=== PATIENT | male | born 1985 | race Caucasian/White ===

== ENCOUNTER 2016-11-20 18:48 | Emergency (ER) | payer BC ==
[2016-11-20 19:44] VITALS: BP 150/90
--- NOTE | 2016-11-20 19:50 | ERNOTE ---
Upper Extremity HPI - General Extremities Pain Location: arm: right Time Seen by Provider: 11/20/16 19:18 Source: patient Exam Limitations: no limitations - Immun/Allergies/Home Medications Immunizations: IMMUNIZATION HX History of Influenza Vaccine No Hx Pneumococcal Vaccination No Allergies/Adverse Reactions: Allergies Allergy/AdvReac Type Severity Reaction Status Date / Time Cephalosporins Allergy Verified 11/20/16 18:58 Penicillins Allergy Verified 11/20/16 18:58 Home Medications: HOME MEDICATIONS NK [No Home Medication] 11/20/16 [Last Taken Unknown] - History of Present Illness Narrative: Patient had a mild ache in his shoulder and arm when he woke up this morning. He denies any injury, he does not sleep in any particular position. During the work day he started to have progressive numbness and weakness in his right arm to the point where he cannot feel anything in his right arm from the shoulder down. 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 He has occasional pin and needle feeling in his arm in the morning when he wake us that resolve quickly, no symptoms like this before. He denies any neck pain or other neurological or systemic symptoms Date (Duration): 11/20/16 Occurred: this afternoon Method of Injury: Reports: no apparent injury Associated Symptoms: Reports: weakness, numbness distally, loss of feeling Other Injuries: Reports: none Prior Treament: Denies: recently seen, similar symptoms before Review of Systems - Review of Systems Constitutional: Absent: recent illness, fever EYE: Absent: blurred vision, double vision, vision changes ENT: Absent: nasal drainage, sore throat Respiratory: Absent: shortness of breath, cough Cardiology: Absent: chest pain Gastrointestinal/Abdominal: Absent: nausea, vomiting, abdominal pain Genitourinary: Present: no symptoms reported Musculoskeletal: Absent: back pain, neck pain Skin: Absent: rash Neurological: Present: See HPI, weakness, numbness. Absent: headache - Patient's Past Medical History Patient History - Medical: No pertinent hx Patient History - Cardiac/Respiratory: No pertinent hx Patient History - Cancer: No Hx of Cancer Patient History - Surgical Procedures: Appendectomy, T & A - Social History Living Situations: home Psych History: No pertinent hx Smoking Status: Never smoker Do you dip or chew tobacco: Yes Alcohol Use: none Drug Use: none - Immunizations Hx Pneumococcal Vaccination: No History of Influenza Vaccine: No Physical Exam - Physical Exam General Appearance: Present: wd/wn, alert, no apparent distress, obese Eye Exam: Normal inspection: bilateral, PERRL: bilateral, EOMI: bilateral Ears, Nose, Throat: Present: normal ENT inspection, normal pharynx Neck: Present: normal inspection, nontender, supple, full range of motion Respiratory: Present: no respiratory distress, normal breath sounds, no accessory muscle use, lungs clear Cardiovascular/Chest: Present: regular rate, rhythm, no murmur Peripheral Pulses: N=norm/S=strong/W=weak/B=bound/A=absent: Radial (R): Normal Extremity Exam: Present: normal inspection, non-tender, no edema, normal range of motion Neurological Exam: Present: alert, oriented, normal mood/affect, no motor/ sensory deficits - in left arm and both lower extremities, other - patient claims complete abscence of sensation on complete right arm and hand from shoulder down, decrased strength 4/5 right hand, biceps and triceps, nl strength in shoulder DTR: N=norm/NB=norm/brisk/A=abs/DD=dull/dimin/HC=hyperactive: Bicep (R): Dull/ Diminished, Bicep (L): Dull/Diminished, Tricep (R): Dull/Diminished, Tricep (L) : Dull/Diminished Skin Exam: Present: normal color, warm/dry ED Progress - Vital Signs Patient's Vital Signs:: I have reviewed the patient's vital signs. Vital Signs: Vital Signs 11/20/16 18:53 Temperature 36.0 C L Pulse Rate 107 H Respiratory 18 Rate Blood Pressure 156/98 O2 Sat by Pulse 97 Oximetry - Progress/Reassessment Chief Complaint: Upper Extremity Injury/Problem Progress Note-Subjective: 11/20/16 19:25 discussed findings that don't seem to fit any particular pattern, consider possible neuropathy, possibly related to sleep position as patient doesn't have PCP suggested follow up wit neurology does not seem to be work related Departure Clinical Impression: Neuropathy - Departure Disposition: Home self-care Condition: Good Instructions: Peripheral Neuropathy, Form - Return To Work Additional Instructions: call the neurology office in the morning for follow up Referrals: Lucie Wise MD [Staff Physician] -
== END 2016-11-20 19:35 | disposition home or self-care (01) ==
LOC: ER 18:48
DX: G62.9 Polyneuropathy, unspecified (principal); Z72.0 Tobacco use

== ENCOUNTER 2017-03-15 18:22 | Emergency (ER) | payer BC ==
[2017-03-15] MEDS ORDERED: NORMAL SALINE 1,000 ML IV ONE (18:40)
--- NOTE | 2017-03-15 18:55 | ERNOTE ---
Medical Problem HPI - Narrative Date of Service: 03/15/17 - General Chief Complaint: General Assessment Time Seen by Provider: 03/15/17 18:40 Source: patient Exam Limitations: no limitations - Immun/Allergies/Home Medications Immunizations: IMMUNIZATION HX Immunizations Up to Date Yes History of Influenza Vaccine No Hx Pneumococcal Vaccination No Allergies/Adverse Reactions: Allergies Cephalosporins Allergy (Verified 11/20/16 18:58) Penicillins Allergy (Verified 11/20/16 18:58) Home Medications: HOME MEDICATIONS NK [No Home Medication] 11/20/16 [Last Taken Unknown] Multivitamin [Multivitamins] 1 each PO DAILY 03/15/17 [Last Taken Unknown] Omeg3/Dha/Epa/Fish Oil/L.casei [Restora Capsule] 1 each PO DAILY 03/15/17 [Last Taken Unknown] - History of Present History Narrative: Pt. comes in with c/o malaise, nausea, and chest pain after he became overheated at work. Pt. denies any recent illness, SOB, vomiting, fever, but does state that he had dizziness that is resolved at this time. Pt. states taht he has had heat exhaustion in the past and this feels similar without the chest pain. Review of Systems - Review of Systems Constitutional: Present: weakness, fatigue, malaise. Absent: recent illness, fever, chills EYE: Present: no symptoms reported ENT: Present: no symptoms reported Respiratory: Present: no symptoms reported. Absent: shortness of breath, cough , wheezing Cardiology: Present: chest pain. Absent: palpitations, edema Gastrointestinal/Abdominal: Present: nausea. Absent: vomiting, diarrhea, abdominal pain Genitourinary: Present: no symptoms reported Musculoskeletal: Present: no symptoms reported. Absent: back pain, joint pain Skin: Present: no symptoms reported. Absent: rash, change in color Neurological: Present: dizziness/light-headedness. Absent: headache, numbness, tingling, tremors All Other Systems: All systems neg except as marked - Patient's Past Medical History Patient History - Medical: No pertinent hx Patient History - Cardiac/Respiratory: No pertinent hx Patient History - Cancer: No Hx of Cancer Patient History - Surgical Procedures: Appendectomy, T & A - Social History Living Situations: home Abuse History: No History of abuse Psych History: No pertinent hx Smoking Status: Former smoker Have you smoked in the past 12 months: Yes Do you dip or chew tobacco: Yes Patient requests Smoking Cessation Consult: No Initiate information on Smoking Cessation: No Alcohol Use: none Drug Use: none - Immunizations Immunizations Up to Date: Yes Hx Pneumococcal Vaccination: No History of Influenza Vaccine: No Physical Exam - Physical Exam General Appearance: Present: wd/wn, alert, no apparent distress Eye Exam: Normal inspection: bilateral, PERRL: bilateral, EOMI: bilateral Ears, Nose, Throat: Present: normal except -, dry mucous membranes Neck: Present: normal inspection, nontender. Absent: lymphadenopathy (R), lymphadenopathy (L) Respiratory: Present: no respiratory distress, normal breath sounds, no accessory muscle use, chest nontender, lungs clear Cardiovascular/Chest: Present: regular rate, rhythm, no murmur, normal peripheral pulses Gastrointestinal/Abdominal: Present: normal bowel sounds, nontender, nondistended, soft, no organomegaly Back Exam: Present: normal inspection, normal range of motion, no CVA tenderness , no vertebral tenderness Extremity Exam: Present: normal inspection, non-tender, normal range of motion, no edema Neurological Exam: Present: alert, oriented, normal mood/affect, no motor/ sensory deficits, 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 Absent: pallor, skin rash ED Progress - Date and Time Seen: Date and Time: 03/15/17 19:59 All labs and ekg are normal so feel that this was likely related to heat in the building. - Results and Orders Patient's Lab Results:: I have reviewed the patient's lab results. - Vital Signs Patient's Vital Signs:: I have reviewed the patient's vital signs. Vital Signs: Vital Signs 03/15/17 18:28 Temperature 36.3 C L Pulse Rate 75 Respiratory 18 Rate Blood Pressure 169/109 O2 Sat by Pulse 98 Oximetry - EKG EKG: NSR EKG read: Reviewed by me EKG Comments: interp by Dr Acuna - X-Ray X-Ray #1 X-Ray: chest Interpretation: Interp. by me X-ray Comments: no obvious mediastinal injury or cardiopulmonary process. - Progress/Reassessment Chief Complaint: General Assessment Departure - Departure Clinical Impression: Heat effects Qualifiers: Encounter type: initial encounter Qualified Code(s): T67.9XXA - Effect of heat and light, unspecified, initial encounter Disposition: Home self-care Condition: Good Instructions: Heat Exhaustion Information Additional Instructions: Please follow up with primary provider in 2-3 days if no improvement
[2017-03-15 18:58] LABS: Hematocrit 44.2 % (42.0-52.0); Hemoglobin 15.2 gm/dL (13.5-18.0); Mean Cell Volume 83.2 fl (78-100); Mean Corpuscular Hemoglobin 28.6 pg (27-31); Mean Corpuscular Hgb Conc 34.4 g/dl (32-36); Mean Platelet Volume 10.4 fl (6.0-9.5); Neutrophil # 5.8 K/mm3 (1.3-6.0); Platelet Count 315 K/mm3 (150-450); Red Blood Count 5.31 M/mm3 (4.7-6.0); Red Cell Distribution Width 13.3 % (11.5-14.0); White Blood Count 10.4 K/mm3 (4.0-10.5)
[2017-03-15 19:17] LABS: ALT 48 U/L (19-67); AST 22 U/L (0-48); Albumin * 4.1 gm/dl (3.4-5.0); Alkaline Phosphatase * 83 U/L (50-170); Anion Gap 11.5 mmol/L (6.8-13.8); BUN/Creatinine Ratio 12.6 (9.0-21.6); Bilirubin, Total 0.3 mg/dL (0.0-1.1); Blood Urea Nitrogen 13 mg/dL (6-23); Ca. Corrected For Albumin 8.7 mg/dL (8.4-10.2); Calcium * 9.1 mg/dL (7.9-10.9); Carbon Dioxide 30.2 mmol/L (24-32.6); Chloride 102 mmol/L (97-106); Glucose * 138 mg/dL (70-110); Potassium 3.7 mmol/L (3.4-4.6); Sodium 140 mmol/L (132-142); Total Protein 8.3 gm/dL (6.2-8.2)
[2017-03-15 19:19] LABS: Troponin I Less than 0.017 ng/ml (0.00-0.10)
[2017-03-15 19:24] LABS: Urine Bilirubin Negative (NEGATIVE); Urine Ketone Negative (NEGATIVE); Urine Nitrite Negative (NEGATIVE); Urine Protein Negative (NEGATIVE); Urine Specific Gravity >=1.030 SP.GR. (1.005-1.030); Urine Urobilinogen Normal (NORMAL)
[2017-03-15 19:33] LABS: Urine Appearance Clear; Urine Blood 5 /ul (NEGATIVE); Urine Color Yellow
[2017-03-15 19:34] LABS: Urine Bacteria None Seen; Urine RBC None Seen /hpf (0-5); Urine WBC None Seen /hpf (0-5)
[2017-03-15 19:39] LABS: Cocaine Ur Negative (NEGATIVE); Urine Barbiturate Negative (NEGATIVE); Urine Benzodiazepines Negative (NEGATIVE); Urine Opiates Negative (NEGATIVE); Urine PCP Negative (NEGATIVE); Urine THC Negative (NEGATIVE)
[2017-03-15 20:19] VITALS: BP 152/89
== END 2017-03-15 20:18 | disposition home or self-care (01) ==
LOC: ER 18:22
DX: T67.9XXA Effect of heat and light, unspecified, initial encounter (principal); Z87.891 Personal history of nicotine dependence; R07.9 Chest pain, unspecified; R11.0 Nausea

== ENCOUNTER 2017-10-02 14:36 | Emergency (ER) | payer BC ==
[2017-10-02] MEDS ORDERED: NORMAL SALINE 1,000 ML IV ONE (15:01)
[2017-10-02] MEDS ORDERED: ONDANSETRON HCL/PF 2 MG/ML VIAL IV ONE (15:02)
[2017-10-02] MEDS ORDERED: ONDANSETRON HCL/PF 2 MG/ML VIAL ONE (15:22)
[2017-10-02 15:24] LABS: Hematocrit 45.6 % (42.0-52.0); Hemoglobin 15.9 gm/dL (13.5-18.0); Mean Cell Volume 80.9 fl (78-100); Mean Corpuscular Hemoglobin 28.2 pg (27-31); Mean Corpuscular Hgb Conc 34.9 g/dl (32-36); Neutrophil # 11.1 K/mm3 (1.3-6.0); Neutrophil % 71.7 % (42-75.0); Platelet Count 311 K/mm3 (150-450); Red Blood Count 5.64 M/mm3 (4.7-6.0); White Blood Count 15.5 K/mm3 (4.0-10.5)
[2017-10-02 15:37] LABS: Albumin * 4.1 gm/dl (3.4-5.0); Anion Gap 16.3 mmol/L (6.8-13.8); BUN/Creatinine Ratio 10.9 (9.0-21.6); Bilirubin, Total 0.5 mg/dL (0.0-1.1); Ca. Corrected For Albumin 8.6 mg/dL (8.4-10.2); Carbon Dioxide 22.2 mmol/L (24-32.6); Potassium 3.5 mmol/L (3.4-4.6); Total Protein 8.6 gm/dL (6.2-8.2)
[2017-10-02 15:48] LABS: Urine Bilirubin Negative (NEGATIVE); Urine Ketone Negative (NEGATIVE); Urine Nitrite Negative (NEGATIVE); Urine Protein 100 mg/dL (NEGATIVE); Urine Urobilinogen Normal (NORMAL)
[2017-10-02 16:02] LABS: Hemoglobin A1C 10.4 % (4.00-6.0)
[2017-10-02 16:04] LABS: Cocaine Ur Negative (NEGATIVE); Urine Barbiturate Negative (NEGATIVE); Urine Benzodiazepines Negative (NEGATIVE); Urine Opiates Negative (NEGATIVE); Urine PCP Negative (NEGATIVE); Urine THC Negative (NEGATIVE)
[2017-10-02 16:08] LABS: Urine Appearance Clear; Urine Bacteria 2+; Urine Blood 5 /ul (NEGATIVE); Urine Coarse Granular Cast 0-5 /LPF; Urine Color Yellow; Urine RBC 0-5 /hpf (0-5); Urine WBC 0-5 /hpf (0-5)
--- NOTE | 2017-10-02 17:26 | ERNOTE ---
Medical Problem HPI - Narrative Date of Service: 10/02/17 - General Chief Complaint: Nausea/Vomiting Time Seen by Provider: 10/02/17 14:56 Source: patient Exam Limitations: no limitations - Immun/Allergies/Home Medications Immunizations: IMMUNIZATION HX Immunizations Up to Date Yes History of Influenza Vaccine No Hx Pneumococcal Vaccination No Allergies/Adverse Reactions: Allergies Cephalosporins Allergy (Verified 11/20/16 18:58) Penicillins Allergy (Verified 11/20/16 18:58) Home Medications: HOME MEDICATIONS Ondansetron [Zofran Odt] 4 mg PO Q6H PRN #20 tab 10/02/17 [Last Taken Unknown] metFORMIN HCL [Metformin HCl] 500 mg PO DAILY #30 tablet 10/02/17 [Last Taken Unknown] - History of Present History Narrative: patient has had nauea and vomiting Timing: constant Severity: moderate Modifying Factors - (Improves): Present: other - nothing Modifying Factors - (Worsens): Present: eating Review of Systems - Narrative Narrative: patient has been sick for 3-4 day - Review of Systems Constitutional: Present: See HPI, weakness, fatigue, malaise EYE: Present: no symptoms reported ENT: Present: no symptoms reported Respiratory: Present: no symptoms reported Cardiology: Present: no symptoms reported Gastrointestinal/Abdominal: Present: nausea, vomiting, diarrhea Genitourinary: Present: no symptoms reported Musculoskeletal: Present: no symptoms reported Skin: Present: no symptoms reported Neurological: Present: no symptoms reported Endocrine: Present: no symptoms reported Hematologic/Lymphatic: Present: no symptoms reported Psych: Present: no symptoms reported - Narrative Narrative: unremarkable - Patient's Past Medical History Patient History - Medical: No pertinent hx Patient History - Cardiac/Respiratory: No pertinent hx Patient History - Cancer: No Hx of Cancer Patient History - Surgical Procedures: Appendectomy, T & A Patient History - Other: None - Family History Family History:: no untoward family reactions to anesthesia, no familial bleeding tendencies, no family history of clotting disorders, no family history of premature - Social History Living Situations: home Abuse History: No History of abuse Psych History: No pertinent hx Smoking Status: Never smoker Have you smoked in the past 12 months: Yes Do you dip or chew tobacco: No Patient requests Smoking Cessation Consult: No Initiate information on Smoking Cessation: No Alcohol Use: none Drug Use: none - Immunizations Immunizations Up to Date: Yes Hx Pneumococcal Vaccination: No History of Influenza Vaccine: No Physical Exam - Physical Exam General Appearance: Present: mild distress, anxious Head Exam: Present: normal inspection, no evidence of injury Eye Exam: Normal inspection: bilateral, PERRL: bilateral, EOMI: bilateral Ears, Nose, Throat: Present: normal ENT inspection Neck: Present: normal inspection, nontender Respiratory: Present: no respiratory distress, normal breath sounds, no accessory muscle use, chest nontender, lungs clear Cardiovascular/Chest: Present: regular rate, rhythm, no murmur, normal peripheral pulses Peripheral Pulses: N=norm/S=strong/W=weak/B=bound/A=absent: Carotid (R): Normal , Carotid (L): Normal, Radial (R): Normal, Radial (L): Normal, Femoral (R): Normal, Femoral (L): Normal, Dorsalis-pedis (R): Normal, Dorsalis-pedis (L): Normal Gastrointestinal/Abdominal: Present: tenderness, distended Back Exam: Present: normal inspection, normal range of motion, no CVA tenderness , no vertebral tenderness Extremity Exam: Present: normal inspection, non-tender, normal range of motion, no edema Neurological Exam: Present: alert, oriented, normal mood/affect, no motor/ sensory deficits DTR: N=norm/NB=norm/brisk/A=abs/DD=dull/dimin/HC=hyperactive: Bicep (R): Normal , Bicep (L): Normal, Tricep (R): Normal, Tricep (L): Normal, Knee (R): Normal, Knee (L): Normal, Ankle (R): Normal, Ankle (L): Normal Skin Exam: Present: normal color, warm/dry Lymphatic Exam: Present: no adenopathy ED Progress - Date and Time Seen: Date and Time: 10/02/17 17:20 patient improved discussed labs with patient to f/u with f/p for management of ddiabetes - Results and Orders Patient's Lab Results:: I have reviewed the patient's lab results. - Vital Signs Patient's Vital Signs:: I have reviewed the patient's vital signs. Vital Signs: Vital Signs 10/02/17 14:46 Temperature 36.1 C L Pulse Rate 107 H Respiratory 16 Rate Blood Pressure 141/92 O2 Sat by Pulse 96 Oximetry - EKG EKG: NSR - X-Ray X-Ray #1 X-Ray: abdomen - no acute process - Progress/Reassessment Chief Complaint: Nausea/Vomiting Progress:: Improved - Transfer of Care Expected Disposition: Discharge Plan - Plan Plan: to be dismissed Departure Clinical Impression: Diabetes - Departure Disposition: Home self-care Condition: Fair Instructions: Hyperglycemia, [id number] Prescriptions: metFORMIN HCL [Metformin HCl] 500 mg PO DAILY #30 tablet Ondansetron [Zofran Odt] 4 mg PO Q6H PRN #20 tab PRN Reason: Nausea
[2017-10-02 18:58] VITALS: BP 139/89
== END 2017-10-02 17:25 | disposition home or self-care (01) ==
LOC: ER 14:36
PROC: 4A033R1 Measurement of Arterial Saturation, Peripheral, Percutaneous Approach (ICD-10-PCS; principal; 2017-10-02)
DX: E11.9 Type 2 diabetes mellitus without complications (principal)
CPT/HCPCS: 36415; 36600; 74019; 80053; 80307; 81001; 82009; 82803; 82947; 83036; 85025; 87400; 96374; 99284; J2405